=== PATIENT | male | born 2000 | race Caucasian/White ===

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

== ENCOUNTER 2022-08-12 18:05 | Emergency (ER) | payer OTHER ==
[~2022-08-12] VITALS: Ht 167.6 cm; Wt 102.0 kg
[~2022-08-12 18:05] MED LIST changes: -ARIP10TA16 PO; +ARIP10TA56 PO; +CLON0.1T2 PO; +METH18TA PO
[2022-08-12 18:14] VITALS: BP 141/81
[2022-08-13] MEDS ORDERED: GLIP-102 PO (11:56)
[2022-08-13] MEDS ORDERED: SERT-439 PO (11:56)
[2022-08-13] MEDS ORDERED: PROP10TA72 PO (11:56)
[2022-08-13] MEDS ORDERED: METF-1211 PO (11:56)
[2022-08-13] MEDS ORDERED: QUET50TA24 PO (11:56)
[2022-08-13] MEDS ORDERED: SITA100 PO (11:56)
[2022-08-13] MEDS ORDERED: HALOPERIDOL 5 MG TABLET ONE (12:18)
[2022-08-13] MEDS ORDERED: LORazepam 2 MG TABLET ONE (12:18)
== END 2022-08-12 21:37 | disposition still patient (30) ==
LOC: EMS 18:06
DX: Z53.21 Procedure and treatment not carried out due to patient leaving prior to being seen by health care provider (principal)
CPT/HCPCS: Z7610

== ENCOUNTER 2022-08-13 10:20 | Inpatient (IN) | payer MEDICAID ==
[~2022-08-13] VITALS: Ht 170.2 cm; Wt 94.6 kg
[2022-08-13] MEDS ORDERED: ZOLPIDEM TARTRATE 10 MG TABLET PO PRN (11:45)
[2022-08-13] MEDS ORDERED: HALOPERIDOL 5 MG TABLET PO PRN (11:45)
[2022-08-13] MEDS ORDERED: GLIP-102 PO (11:56)
[2022-08-13] MEDS ORDERED: SERT-439 PO (11:56)
[2022-08-13] MEDS ORDERED: PROP10TA72 PO (11:56)
[2022-08-13] MEDS ORDERED: QUET50TA24 PO (11:56)
[2022-08-13] MEDS ORDERED: SITA100 PO (11:56)
[2022-08-13] MEDS ORDERED: METF-1211 PO (11:56)
[2022-08-13] MEDS: LORazepam 2 MG TABLET PO PRN (12:07)
[2022-08-13] MEDS ORDERED: LORazepam 2 MG/ML VIAL IM ONE (13:45)
[2022-08-13] MEDS ORDERED: HALOPERIDOL LACTATE 5 MG/ML VIAL IM ONE (13:45)
[2022-08-13] MEDS ORDERED: LORazepam 2 MG/ML VIAL ONE (13:52)
[2022-08-13] MEDS ORDERED: HALOPERIDOL LACTATE 5 MG/ML VIAL ONE (13:53)
[2022-08-13 13:59] VITALS: BP 136/68
[2022-08-13 14:28] VITALS: BP 127/61
[2022-08-13] MEDS ORDERED: SitaGLIPtin PHOSPHATE 100 MG TABLET PO ONE (15:00)
[2022-08-13 15:16] LABS: GLUCOMETER DEV NAME(LOC) BV3N.; GLUCOSE,POINT OF CARE 135 MG/DL (70-110)
[2022-08-13] MEDS ORDERED: INFLUENZA VIRUS VACCINE QVS 2022-23 (6MO+)/PF 60 MCG/0.5 ML SYRINGE IM. ONE (15:30)
[2022-08-13] MEDS: MetFORMIN HCL 500 MG TABLET PO SCH (17:41)
[2022-08-13 21:13] VITALS: BP 111/63
[2022-08-13 21:14] VITALS: BP 111/63
[2022-08-14 01:16] LABS: GLUCOMETER DEV NAME(LOC) POC.BV
[2022-08-14] MEDS: MetFORMIN HCL 500 MG TABLET PO SCH ×2 (06:34→16:42)
[2022-08-14] MEDS: GlipiZIDE ER 2.5 MG ER TABLET PO SCH (06:34)
[2022-08-14 06:41] LABS: GLUCOMETER DEV NAME(LOC) BV3N.; GLUCOSE,POINT OF CARE 93 MG/DL (70-110)
[2022-08-14 07:52] LABS: BASOPHILS % (AUTO) 0.4 % (0.0-2.0); EOSINOPHILS % (AUTO) 1.9 % (1.0-6.0); HEMATOCRIT 45.8 % (41-53); HEMOGLOBIN 15.6 g/dL (13.5-17.5); LYMPHOCYTES # (AUTO) 3.2 K/uL (1.0-4.8); LYMPHOCYTES % (AUTO) 34.8 % (22.0-44.0); MEAN CORPUSCULAR HEMOGLOBIN 28.5 pg (26.0-34.0); MEAN CORPUSCULAR VOLUME 84 fL (80-100); MONOCYTES # (AUTO) 0.5 K/uL (0.1-1.0); MONOCYTES % (AUTO) 5.7 % (2.0-9.0); NEUTROPHILS # (AUTO) 5.3 K/uL (1.8-7.7); NEUTROPHILS % (AUTO) 57.2 % (40.0-70.0); PLATELET COUNT (AUTO) 352 K/uL (150-450); RED BLOOD CELL COUNT(AUTO) 5.46 MIL/uL (4.50-5.90); RED CELL DISTRIBUTION WIDTH 13.8 % (11.5-14.5)
[2022-08-14 08:20] LABS: ALANINE AMINOTRANSFERASE 77 U/L (12-78); ALBUMIN 3.9 g/dL (3.4-5.0); ALKALINE PHOSPHATASE 106 U/L (46-116); ANION GAP 6 mmol/L (8-16); ASPARTATE AMINOTRANSFERASE 33 U/L (15-37); BILIRUBIN,TOTAL 0.3 mg/dL (0.1-1.0); CALCIUM, TOTAL 9.2 mg/dL (8.8-10.5); CARBON DIOXIDE 30 mmol/L (22-29); CHLORIDE 103 mmol/L (98-107); CHOL/HDL RATIO 5.3 (4.2-7.3); CHOLESTEROL 196 mg/dL (131-200); CREATININE 0.87 mg/dL (0.60-1.30); FREE T4 (FREE THYROXINE) 0.99 ng/dL (0.76-1.46); GLOMERULAR FILTR. RATE CALC > 60 mL/min (>60); GLUCOSE,RANDOM 89 mg/dL (70-110); HDL CHOLESTEROL 37 mg/dL (40-60); LDL CHOL (CALC.) 134 mg/dL (0-130); POTASSIUM 4.1 mmol/L (3.5-5.1); SODIUM SERUM 139 mmol/L (136-145); THYROID STIMULATING HORMONE 4.77 uIU/mL (0.36-3.74); TOTAL PROTEIN, SERUM 8.5 g/dL (6.4-8.2); TRIGLYCERIDES 126 mg/dL (15-150); UREA NITROGEN, BLOOD 13 mg/dL (7-18)
[2022-08-14 08:23] VITALS: BP 133/69
[2022-08-14] MEDS: RisperiDONE 2 MG TABLET PO SCH ×2 (11:28→16:42)
[2022-08-14] MEDS ORDERED: DOCUSATE SODIUM 100 MG CAPSULE PO PRN (16:00)
[2022-08-14] MEDS ORDERED: MAGNESIUM HYDROXIDE SUSPENSION 30 ML UDCUP PO PRN (16:00)
[2022-08-14] MEDS ORDERED: ALBUTEROL SULFATE HFA 90 MCG/PUFF 8 GM INHALER IH PRN (16:00)
[2022-08-14] MEDS ORDERED: PETROLATUM,WHITE 28 GM JELLY TP PRN (16:00)
[2022-08-14] MEDS ORDERED: IBUPROFEN 400 MG TABLET PO PRN (16:00)
[2022-08-14] MEDS ORDERED: LOPERAMIDE HCL 2 MG CAPSULE PO PRN (16:00)
[2022-08-14] MEDS ORDERED: NICOTINE 14 MG/24 HOUR PATCH TD PRN (16:00)
[2022-08-14] MEDS ORDERED: ACETAMINOPHEN 325 MG TABLET PO PRN (16:00)
[2022-08-14] MEDS ORDERED: ONDANSETRON HCL 4 MG TABLET PO PRN (16:00)
[2022-08-14] MEDS ORDERED: CloNIDine HCL 0.1 MG TABLET PO PRN (16:00)
[2022-08-14] MEDS ORDERED: GuaiFENesin/D-METHORPHAN [SUGAR-FREE] 200-20MG/10 ML SYRUP UDCUP PO PRN (16:00)
[2022-08-14] MEDS ORDERED: MAG HYDROX/AL HYDROX/SIMETH ES 30 ML SUSPENSION UDCUP PO PRN (16:00)
[2022-08-14 20:09] VITALS: BP 106/78
[2022-08-15 06:31] LABS: GLUCOMETER DEV NAME(LOC) BV3N.; GLUCOSE,POINT OF CARE 113 MG/DL (70-110)
[2022-08-15] MEDS: GlipiZIDE ER 2.5 MG ER TABLET PO SCH (06:40)
[2022-08-15] MEDS: MetFORMIN HCL 500 MG TABLET PO SCH ×2 (06:40→16:55)
[2022-08-15] MEDS: RisperiDONE 2 MG TABLET PO SCH ×2 (08:20→16:55)
[2022-08-15 08:33] VITALS: BP 129/64
[2022-08-15] MEDS ORDERED: HALOPERIDOL LACTATE 5 MG/ML VIAL ONE (10:34)
[2022-08-15] MEDS ORDERED: LORazepam 2 MG/ML VIAL ONE (10:34)
[2022-08-15] MEDS ORDERED: DiphenhydrAMINE HCL 50 MG/ML VIAL ONE (10:34)
[2022-08-15] MEDS ORDERED: DiphenhydrAMINE HCL 50 MG/ML VIAL IM ONE (10:45)
[2022-08-15] MEDS ORDERED: HALOPERIDOL LACTATE 5 MG/ML VIAL IM ONE (10:45)
[2022-08-15] MEDS ORDERED: LORazepam 2 MG/ML VIAL IM ONE (10:45)
[2022-08-15] MEDS: LORazepam 2 MG TABLET PO PRN (16:55)
[2022-08-15 20:09] VITALS: BP 130/70
[2022-08-16] MEDS: GlipiZIDE ER 2.5 MG ER TABLET PO SCH (06:17)
[2022-08-16] MEDS: MetFORMIN HCL 500 MG TABLET PO SCH ×2 (06:17→16:57)
[2022-08-16 06:32] LABS: GLUCOMETER DEV NAME(LOC) BV3N.; GLUCOSE,POINT OF CARE 95 MG/DL (70-110)
[2022-08-16] MEDS: RisperiDONE 2 MG TABLET PO SCH ×2 (08:07→16:57)
[2022-08-16 08:14] VITALS: BP 126/86
[2022-08-16] MEDS: LORazepam 2 MG TABLET PO PRN ×2 (12:45→16:57)
[2022-08-16 20:06] VITALS: BP 138/84
[2022-08-17 06:26] LABS: GLUCOMETER DEV NAME(LOC) BV3N.; GLUCOSE,POINT OF CARE 78 MG/DL (70-110)
[2022-08-17] MEDS: GlipiZIDE ER 2.5 MG ER TABLET PO SCH (06:39)
[2022-08-17] MEDS: MetFORMIN HCL 500 MG TABLET PO SCH ×2 (06:39→16:19)
[2022-08-17] MEDS: RisperiDONE 2 MG TABLET PO SCH ×2 (08:15→16:19)
[2022-08-17 08:25] VITALS: BP 122/73
[2022-08-17 20:10] VITALS: BP 137/78
[2022-08-18] MEDS: MetFORMIN HCL 500 MG TABLET PO SCH ×2 (06:27→17:01)
[2022-08-18] MEDS: GlipiZIDE ER 2.5 MG ER TABLET PO SCH (06:31)
[2022-08-18 06:50] LABS: GLUCOMETER DEV NAME(LOC) BV3N.; GLUCOSE,POINT OF CARE 85 MG/DL (70-110)
[2022-08-18 08:22] VITALS: BP 136/77
[2022-08-18] MEDS: RisperiDONE 2 MG TABLET PO SCH ×2 (08:30→17:01)
[2022-08-18 22:53] VITALS: BP 132/77
[2022-08-19] MEDS: GlipiZIDE ER 2.5 MG ER TABLET PO SCH (06:21)
[2022-08-19] MEDS: MetFORMIN HCL 500 MG TABLET PO SCH ×2 (06:21→17:01)
[2022-08-19 06:32] LABS: GLUCOMETER DEV NAME(LOC) BV3N.; GLUCOSE,POINT OF CARE 83 MG/DL (70-110)
[2022-08-19 08:06] VITALS: BP 135/80
[2022-08-19] MEDS: RisperiDONE 2 MG TABLET PO SCH ×2 (08:53→17:01)
[2022-08-19 20:15] VITALS: BP 124/87
[2022-08-20 06:47] LABS: GLUCOMETER DEV NAME(LOC) BV3N.; GLUCOSE,POINT OF CARE 90 MG/DL (70-110)
[2022-08-20] MEDS: MetFORMIN HCL 500 MG TABLET PO SCH ×2 (06:48→16:58)
[2022-08-20] MEDS: GlipiZIDE ER 2.5 MG ER TABLET PO SCH (06:48)
[2022-08-20 08:10] VITALS: BP 115/67
[2022-08-20] MEDS: RisperiDONE 2 MG TABLET PO SCH ×2 (09:23→16:58)
[2022-08-20] MEDS: LORazepam 2 MG TABLET PO PRN (16:58)
[2022-08-20 22:10] VITALS: BP 140/60
[2022-08-21] MEDS: GlipiZIDE ER 2.5 MG ER TABLET PO SCH (06:17)
[2022-08-21] MEDS: MetFORMIN HCL 500 MG TABLET PO SCH ×2 (06:17→17:20)
[2022-08-21 06:26] LABS: GLUCOMETER DEV NAME(LOC) BV3N.; GLUCOSE,POINT OF CARE 85 MG/DL (70-110)
[2022-08-21 08:30] VITALS: BP 121/64
[2022-08-21] MEDS: RisperiDONE 2 MG TABLET PO SCH ×2 (08:45→17:20)
[2022-08-21 09:51] LABS: GLUCOMETER DEV NAME(LOC) POC.BV
[2022-08-21 20:16] VITALS: BP 140/66
[2022-08-22] MEDS: GlipiZIDE ER 2.5 MG ER TABLET PO SCH (06:12)
[2022-08-22 06:16] LABS: GLUCOMETER DEV NAME(LOC) BV3N.; GLUCOSE,POINT OF CARE 88 MG/DL (70-110)
[2022-08-22] MEDS: MetFORMIN HCL 500 MG TABLET PO SCH ×2 (06:16→16:43)
[2022-08-22] MEDS: RisperiDONE 2 MG TABLET PO SCH ×2 (08:13→16:43)
[2022-08-22 08:14] VITALS: BP 118/58
[2022-08-22 20:09] VITALS: BP 122/62
[2022-08-23 06:21] LABS: GLUCOMETER DEV NAME(LOC) BV3N.; GLUCOSE,POINT OF CARE 93 MG/DL (70-110)
[2022-08-23] MEDS: GlipiZIDE ER 2.5 MG ER TABLET PO SCH (06:30)
[2022-08-23] MEDS: MetFORMIN HCL 500 MG TABLET PO SCH ×2 (06:30→17:04)
[2022-08-23 08:04] VITALS: BP 127/86
[2022-08-23] MEDS: RisperiDONE 2 MG TABLET PO SCH ×2 (08:11→17:04)
[2022-08-23 22:27] VITALS: BP 112/77
[2022-08-24] MEDS: GlipiZIDE ER 2.5 MG ER TABLET PO SCH (06:20)
[2022-08-24] MEDS: MetFORMIN HCL 500 MG TABLET PO SCH ×2 (06:20→16:50)
[2022-08-24] MEDS: RisperiDONE 2 MG TABLET PO SCH ×2 (08:14→16:49)
[2022-08-24 20:06] VITALS: BP 124/85
[2022-08-25 06:26] LABS: GLUCOMETER DEV NAME(LOC) BV3N.; GLUCOSE,POINT OF CARE 94 MG/DL (70-110)
[2022-08-25] MEDS: MetFORMIN HCL 500 MG TABLET PO SCH ×2 (06:35→17:06)
[2022-08-25] MEDS: GlipiZIDE ER 2.5 MG ER TABLET PO SCH (06:35)
[2022-08-25 08:20] VITALS: BP 120/71
[2022-08-25] MEDS: RisperiDONE 2 MG TABLET PO SCH ×2 (08:44→17:06)
[2022-08-25 20:31] VITALS: BP 113/66
[2022-08-26] MEDS: MetFORMIN HCL 500 MG TABLET PO SCH ×2 (06:16→16:37)
[2022-08-26] MEDS: GlipiZIDE ER 2.5 MG ER TABLET PO SCH (06:16)
[2022-08-26 06:26] LABS: GLUCOMETER DEV NAME(LOC) BV3N.; GLUCOSE,POINT OF CARE 102 MG/DL (70-110)
[2022-08-26 08:03] VITALS: BP 119/70
[2022-08-26] MEDS: RisperiDONE 2 MG TABLET PO SCH ×2 (08:04→16:37)
[2022-08-26 20:28] VITALS: BP 116/66
[2022-08-27] MEDS: MetFORMIN HCL 500 MG TABLET PO SCH ×2 (06:05→17:02)
[2022-08-27] MEDS: GlipiZIDE ER 2.5 MG ER TABLET PO SCH (06:05)
[2022-08-27 06:17] LABS: GLUCOMETER DEV NAME(LOC) BV3N.; GLUCOSE,POINT OF CARE 92 MG/DL (70-110)
[2022-08-27 08:00] VITALS: BP 118/79
[2022-08-27] MEDS: RisperiDONE 2 MG TABLET PO SCH ×2 (09:19→17:02)
[2022-08-27 20:32] VITALS: BP 128/78
[2022-08-28] MEDS: GlipiZIDE ER 2.5 MG ER TABLET PO SCH (06:28)
[2022-08-28] MEDS: MetFORMIN HCL 500 MG TABLET PO SCH ×2 (06:28→17:36)
[2022-08-28 06:37] LABS: GLUCOMETER DEV NAME(LOC) BV3N.; GLUCOSE,POINT OF CARE 96 MG/DL (70-110)
[2022-08-28] MEDS: RisperiDONE 2 MG TABLET PO SCH ×2 (08:18→17:36)
[2022-08-28 10:51] LABS: GLUCOMETER DEV NAME(LOC) POC.BV
[2022-08-28 20:11] VITALS: BP 125/69
[2022-08-29] MEDS: MetFORMIN HCL 500 MG TABLET PO SCH ×2 (06:32→16:52)
[2022-08-29] MEDS: GlipiZIDE ER 2.5 MG ER TABLET PO SCH (06:32)
[2022-08-29 06:41] LABS: GLUCOMETER DEV NAME(LOC) BV3N.; GLUCOSE,POINT OF CARE 102 MG/DL (70-110)
[2022-08-29 08:12] VITALS: BP 130/68
[2022-08-29] MEDS: RisperiDONE 2 MG TABLET PO SCH ×2 (08:34→16:52)
[2022-08-29 20:08] VITALS: BP 125/67
[2022-08-30 06:22] LABS: GLUCOMETER DEV NAME(LOC) BV3N.; GLUCOSE,POINT OF CARE 101 MG/DL (70-110)
[2022-08-30] MEDS: GlipiZIDE ER 2.5 MG ER TABLET PO SCH (06:35)
[2022-08-30] MEDS: MetFORMIN HCL 500 MG TABLET PO SCH (06:36)
[2022-08-30 08:19] VITALS: BP 116/68
[2022-08-30] MEDS: RisperiDONE 2 MG TABLET PO SCH (08:20)
[2022-08-30] MEDS ORDERED: RISP2TAB45 PO (10:38)
[2022-08-30] MEDS ORDERED: RISP2TAB86 PO (17:32)
== END 2022-08-30 14:21 | disposition home or self-care (01) | DRG 750 ==
LOC: B3A 12:48
PROVIDERS: ADMIT Psychiatry & Neurology Child & Adolescent Psychiatry; ATTEND Psychiatry & Neurology Child & Adolescent Psychiatry
DX: F20.9 Schizophrenia, unspecified (principal); E11.9 Type 2 diabetes mellitus without complications; G40.909 Epilepsy, unspecified, not intractable, without status epilepticus; E78.5 Hyperlipidemia, unspecified; E66.01 Morbid (severe) obesity due to excess calories; Z68.32 Body mass index [BMI] 32.0-32.9, adult; Z88.6 Allergy status to analgesic agent
CPT/HCPCS: 80053; 80061; 82962; 84439; 84443; 85025; J1200; J1630; J2060

== ENCOUNTER 2024-08-10 12:38 | Emergency (ER) | payer OTHER ==
[~2024-08-10] VITALS: Ht 170.2 cm; Wt 101.0 kg
[~2024-08-10 12:38] MED LIST changes: -ARIP10TA56 PO; +BENZ-247 PO; -CLON0.1T2 PO; +GLIM2TAB35 PO; +HALO10TA21 PO; +METF-1185 PO; -METH18TA PO; +PROP20TA96 PO; +QUET25TA PO; +RISP2TAB45 PO; +VALB40CA2 PO
[2024-08-10 14:52] VITALS: TEMP 98.3
[2024-08-10 15:21] LABS: BASOPHILS % (AUTO) 0.8 % (0.0-2.0); EOSINOPHILS % (AUTO) 9.3 % (1.0-6.0); HEMATOCRIT 43.5 % (41-53); HEMOGLOBIN 14.5 g/dL (13.5-17.5); LYMPHOCYTES # (AUTO) 2.8 K/uL (1.0-4.8); LYMPHOCYTES % (AUTO) 25.6 % (22.0-44.0); MEAN CORPUSCULAR HEMOGLOBIN 28.6 pg (26.0-34.0); MEAN CORPUSCULAR HGB CONC 33.4 G/dL (31.0-37.0); MEAN CORPUSCULAR VOLUME 86 fL (80-100); MONOCYTES # (AUTO) 0.5 K/uL (0.1-1.0); MONOCYTES % (AUTO) 4.9 % (2.0-9.0); NEUTROPHILS # (AUTO) 6.4 K/uL (1.8-7.7); NEUTROPHILS % (AUTO) 59.4 % (40.0-70.0); PLATELET COUNT (AUTO) 346 K/uL (150-450); RED BLOOD CELL COUNT(AUTO) 5.08 MIL/uL (4.50-5.90); WHITE BLOOD COUNT (AUTO) 10.8 K/uL (4.5-11.0)
[2024-08-10 15:28] LABS: ANION GAP 5 mmol/L (8-16); CALCIUM, TOTAL 9.1 mg/dL (8.8-10.5); CARBON DIOXIDE 31 mmol/L (22-29); CHLORIDE 105 mmol/L (98-107); CREATININE 1.06 mg/dL (0.60-1.30); GLOMERULAR FILTR. RATE CALC > 60 mL/min (>60); GLUCOSE,RANDOM 99 mg/dL (70-110); POTASSIUM 4.4 mmol/L (3.5-5.1); SODIUM SERUM 140 mmol/L (136-145); UREA NITROGEN, BLOOD 17 mg/dL (7-18)
[2024-08-10 15:34] LABS: ALCOHOL, BLOOD (SERUM) < 3 mg/dL (0-10)
[2024-08-10 16:08] LABS: COVID AG,FIA SOURCE NASAL SWAB
[2024-08-10 16:09] LABS: APPEARANCE,URINE CLEAR (CLEAR); BILIRUBIN,URINE NEGATIVE (NEGATIVE); COLOR,URINE LIGHT YELLOW (YELLOW); GLUCOSE, URINE (UA) NEGATIVE (NEGATIVE); KETONES,URINE TRACE mg/dL (NEGATIVE); LEUKOCYTE ESTERASE ,URINE NEGATIVE (NEGATIVE); NITRATE,URINE NEGATIVE (NEGATIVE); OCCULT BLOOD,URINE NEGATIVE (NEGATIVE); PH,URINE 5.5 (5.0-8.0); PH,URINE DRUG SCREEN 5.5 (5.0-8.0); PROTEIN,URINE NEGATIVE (NEGATIVE); SPECIFIC GRAVITIY, URINE 1.023 (1.003-1.030); UROBILINOGEN,URINE <=1.0 mg/dL (<=1.0)
[2024-08-10 16:17] LABS: ALCOHOL, URINE DRUG SCREEN NEGATIVE (NEGATIVE); AMPHET/METH SCREEN,URINE NEGATIVE (NEGATIVE); BARBITURATE SCREEN, URINE NEGATIVE (NEGATIVE); BENZODIAZEPINES SCREEN,URINE NEGATIVE (NEGATIVE); CANNABINOID SCREEN,URINE NEGATIVE (NEGATIVE); COCAINE SCREEN,URINE NEGATIVE (NEGATIVE); METHADONE SCREEN, URINE NEGATIVE (NEGATIVE); OPIATE SCREEN,URINE NEGATIVE (NEGATIVE); PHENCYCLIDINE SCREEN,URINE NEGATIVE (NEGATIVE)
[2024-08-10 16:27] LABS: SARS-COV2 (COVID) ANTIGEN,FIA Negative (Negative)
[2024-08-10] MEDS ORDERED: RISP1TAB48 PO (17:33)
[2024-08-10] MEDS ORDERED: GABA-529 PO (17:33)
[2024-08-10] MEDS ORDERED: VALB80CA PO (17:33)
[2024-08-10] MEDS ORDERED: RISP100S IM (17:33)
[2024-08-10] MEDS ORDERED: LISI5TAB21 PO (17:33)
[2024-08-10] MEDS ORDERED: HYDR50CA6 PO (17:33)
[2024-08-10] MEDS ORDERED: QUET300T91 PO (17:34)
[2024-08-10] MEDS ORDERED: QUET50TA24 PO (17:34)
[2024-08-10] MEDS: HALOPERIDOL 5 MG TABLET PO ONE (17:36)
[2024-08-10] MEDS: LORazepam 2 MG TABLET PO ONE (17:36)
[2024-08-10] MEDS ORDERED: HALO5TAB23 PO (17:45)
[2024-08-10] MEDS ORDERED: LORA2TAB18 PO (17:45)
[2024-08-10 18:10] VITALS: BP 113/87; PULSE 72; RESP 16; O2SAT 95
== END 2024-08-10 20:38 | disposition home or self-care (01) ==
LOC: EMS 12:38
DX: R45.1 Restlessness and agitation (principal); F20.9 Schizophrenia, unspecified; G40.909 Epilepsy, unspecified, not intractable, without status epilepticus; F79 Unspecified intellectual disabilities; Z79.899 Other long term (current) drug therapy; Z88.5 Allergy status to narcotic agent; Z20.822 Contact with and (suspected) exposure to COVID-19
CPT/HCPCS: 99285; 87426; 80048; 81003; 85025; 36415; 80307; G0480